=== PATIENT | female | born 1995 | race Two or more races ===

== ENCOUNTER → 2016-11-26 | Outpatient (CLI) | payer OTHER ==
--- NOTE | ~2016-11-26 | US24 ---
[facility] A Service of [facility] RADIOLOGY TEXT RESULTS PATIENT: JUDD BUI LOCATION: [facility] : [birth year] UNIT #: [id number] AGE: [address]: EVAN MITTAL APRN SEX: F ORDER DR: [id number] [facility] [address] [place], [place] [address] [id number] O MR#: [id number] Acc #: [id number] NAME: JUDD BUI : 1995 SEX: F STUDY DATE/TIME: 11/26/2016 13:25 UNIT: [facility] ROOM: STUDY DESCRIPTION: US Breast Unilateral Attending Physician: Chika Mittal M.D. Referring Physician: Chika Mittal M.D. Ordering Physician: Chika Mittal M.D. Primary Care Physician: Reginald Fernandez M.D. MEDICAL IMAGING REPORT This report is preliminary unless electronic signature is present EXAM Left breast ultrasound INDICATION Palpable left breast mass. PROCEDURE Lopez-scale and Doppler imaging in the area of palpable concern at the 12 to 2 o'clock position. COMPARISON 02/21/2016 FINDINGS There is normal breast tissue seen in the area of palpable concern. No suspicious sonographic mass. IMPRESSION Negative targeted left breast ultrasound. Recommend continued clinical followup. Patients over the age of 40 are entered into a reminder system with target due date for the next mammogram. A result letter will also be sent to the patient. BIRADS: 1 Negative Dictated by... Arsalan Jones M.D. THIS IS AN ELECTRONICALLY VERIFIED REPORT Arsalan Jones M.D. at 11/26/2016 5:00 PM MARIANA/[email or web address] [facility] A Service [facility] RADIOLOGY TEXT RESULTS PATIENT: JUDD BUI LOCATION: [facility] : [birth year] UNIT #: [id number] AGE: [address]: EVAN MITTAL APRN SEX: F ORDER DR: TD: 11/26/2016 16:23 JOB #: [id number] MEDICAL IMAGING REPORT Page 1 of 1 COPY
== END | disposition home or self-care (01) ==
LOC: CWCC 13:13
DX: N63 Unspecified lump in breast (principal)
CPT/HCPCS: 76641